=== PATIENT | male | born 2000 | race Hispanic/Latino ===

== ENCOUNTER 2019-09-06 19:12 | Emergency (ER) | payer MEDICAID, OTHER | END 2019-09-06 20:03 | disposition home or self-care (01) | LOC: EDH 19:12 | DX: R50.9 Fever, unspecified (principal); R05 Cough; M79.10 Myalgia, unspecified site | CPT/HCPCS: 99281 ==

== ENCOUNTER 2021-12-22 09:06 | Emergency (ER) | payer OTHER ==
[~2021-12-22] VITALS: Ht 175.3 cm; Wt 98.9 kg
[2021-12-22 09:08] VITALS: BP 139/94
[2021-12-22] MEDS ORDERED: DICYCLOMINE HCL 10 MG/5 ML ML PO ONE (09:30)
[2021-12-22] MEDS ORDERED: LIDOCAINE HCL 2% VISCOUS 15 ML UDCUP PO ONE (09:30)
[2021-12-22] MEDS ORDERED: MAG/ALUM/SIMETH 30 ML UDCUP PO ONE (09:30)
[2021-12-22] MEDS ORDERED: MAG/ALUM/SIMETH 30 ML UDCUP ONE (09:32)
[2021-12-22] MEDS ORDERED: LIDOCAINE HCL 2% VISCOUS 15 ML UDCUP ONE (09:32)
[2021-12-22 09:40] LABS: APPEARANCE,URINE CLEAR (CLEAR); BILIRUBIN,URINE NEGATIVE (NEGATIVE); COLOR,URINE YELLOW (YELLOW); GLUCOSE, URINE (UA) NEGATIVE (NEGATIVE); KETONES,URINE NEGATIVE (NEGATIVE); LEUKOCYTE ESTERASE ,URINE NEGATIVE (NEGATIVE); NITRATE,URINE NEGATIVE (NEGATIVE); OCCULT BLOOD,URINE TRACE-INTACT (NEGATIVE); PH,URINE 6.5 (5.0-8.0); PROTEIN,URINE NEGATIVE (NEGATIVE); UROBILINOGEN,URINE 0.2 mg/dL (0.2-1.0)
[2021-12-22] MEDS ORDERED: FAMO20TA8 PO (09:49)
[2021-12-22 10:20] LABS: BACTERIA,URINE Rare /HPF (None Seen); RBC,URINE 0-1 /HPF (0-1); SQUAMOUS EPITHELIAL CELL,UR 0-2 /HPF (0-2); WBC,URINE 0-1 /HPF (0-1)
== END 2021-12-22 10:00 | disposition home or self-care (01) ==
LOC: EDH 09:06
DX: K21.9 Gastro-esophageal reflux disease without esophagitis (principal)
CPT/HCPCS: 81001

== ENCOUNTER 2022-01-30 01:44 | Emergency (ER) | payer OTHER ==
[~2022-01-30] VITALS: Ht 175.3 cm; Wt 108.9 kg
[~2022-01-30 01:44] MED LIST: FAMO20TA8 PO
[2022-01-30 01:45] VITALS: BP 146/82
== END 2022-01-30 02:26 | disposition home or self-care (01) ==
LOC: EDH 01:44
DX: H61.22 Impacted cerumen, left ear (principal)
CPT/HCPCS: 69210

== ENCOUNTER 2023-10-18 21:48 | Emergency (ER) | payer OTHER ==
[~2023-10-18] VITALS: Ht 177.8 cm; Wt 99.8 kg
[2023-10-19 03:31] VITALS: BP 128/74; PULSE 73; RESP 18; O2SAT 99
[2023-10-19] MEDS ORDERED: ONDA-104 PO (03:33)
== END 2023-10-19 03:53 | disposition home or self-care (01) ==
LOC: EDH 21:48
DX: R11.2 Nausea with vomiting, unspecified (principal); R19.7 Diarrhea, unspecified

== ENCOUNTER 2023-11-02 16:33 | Emergency (ER) | payer OTHER ==
[~2023-11-02] VITALS: Ht 175.3 cm; Wt 100.2 kg
[~2023-11-02 16:33] MED LIST changes: +ONDA-104 PO
[2023-11-02 17:51] LABS: RAPID GROUP A STREP negative (NEGATIVE)
[2023-11-02 17:53] LABS: SARS-CoV-2, RNA, NAAT NEGATIVE SARS CoV-2 (NEGATIVE)
[2023-11-02 18:06] LABS: INFLUENZA TYPE A NEGATIVE FOR TYPE A (NEG); INFLUENZA TYPE B NEGATIVE FOR TYPE B (NEG)
[2023-11-02] MEDS ORDERED: AMOX500T2 PO (18:16)
[2023-11-02] MEDS ORDERED: PRED5TAB PO (18:16)
[2023-11-02 19:01] VITALS: BP 125/69; PULSE 78; RESP 16; O2SAT 97
== END 2023-11-02 19:03 | disposition home or self-care (01) ==
LOC: EDH 16:33
DX: J02.0 Streptococcal pharyngitis (principal); Z20.822 Contact with and (suspected) exposure to COVID-19
CPT/HCPCS: 87635; 87804; 87880

== ENCOUNTER 2025-01-01 09:13 | Emergency (ER) | payer BC ==
[~2025-01-01] VITALS: Ht 177.8 cm; Wt 111.2 kg
[~2025-01-01 09:13] MED LIST changes: +AMOX500T2 PO; +HYDR-4064 PO; +LIDO1ADH71 TP; +MELO-108 PO; +PRED5TAB PO
--- NOTE | 2025-01-01 09:46 | ERN ---
General Chief Complaint: Nausea,Vomiting,Diarrhea Stated Complaint: VOMITING Time Seen by MD: 09:32 Source: patient History of Present Illness Initial Comments Patient is a 24-year-old male coming in complaining of nausea vomiting and diarrhea. Per patient these symptoms started yesterday. He states he has a had multiple episodes in his here for further evaluation. Allergies: Coded Allergies: No Known Drug Allergies (Unverified Allergy, Unknown, 12/22/21) Home Meds Active Scripts Lidocaine (Lidocaine Pain Relief) 4 % Adh..patch, 1 EACH TP BID PRN for PAIN for 10 Days, #10 ADH.PATCH Prov:CLAIR KENDRICK DO 11/13/23 Hydrocodone/Acetaminophen (Hydrocodon-Acetaminoph 7.5-325) 7.5 Mg-325 Mg Tablet, 1 EACH PO TID PRN for PAIN for 10 Days, #20 TAB Prov:CLAIR KENDRICK DO 11/13/23 Meloxicam (Meloxicam) 15 Mg Tablet, 15 MG PO DAILY PRN for PAIN for 10 Days, #10 TAB Prov:CLAIR KENDRICK DO 11/13/23 Prednisone (Prednisone) 5 Mg Tablet, 5 MG PO DAILY for 5 Days, #5 TAB Prov:MESFIN NICHOLS 11/02/23 Amoxicillin (Amoxicillin) 500 Mg Tablet, 500 MG PO BID for 10 Days, #20 TAB Prov:MESFIN NICHOLS 11/02/23 Ondansetron HCl (Ondansetron HCl) 4 Mg Tablet, 4 MG PO TIDP PRN for VOMITING, #10 TAB Prov:VENUS ANGELES MD 10/19/23 Famotidine (Famotidine) 20 Mg Tablet, 20 MG PO BID for 30 Days, #60 TAB Prov:LENA MONREAL MD 12/22/21 Past Medical History Past Medical History: Other Medical History Other: pmhx back pain Past Surgical History: None Family History Family History: Negative Social History Social History: Negative, Lives with family ROS Dictation CONSTITUTIONAL: No chills, no fever, no weakness, no diaphoresis, no malaise. HEAD/FACE: No signs of trauma. EENT: No eye pain, no blurred vision, no tearing, no double vision, no ear pain, no ear discharge, no nose pain, no nasal congestion, no throat pain, no throat swelling, no mouth pain. RESPIRATORY: No cough, no orthopnea, no SOB, no stridor, no wheezing. CARDIOVASCULAR: No chest pain, no edema, no palpitations, no syncope. GASTROINTESTINAL/ABDOMINAL: No abdominal pain, no constipation, diarrhea, nausea, vomiting. GENITOURINARY: No abnormal discharge, no dysuria, no frequent urination, no hematuria. No complaints of pain in the genitals. MUSCULOSKELETAL: No back pain, no gout, no joint pain, no joint swelling, no muscle pain, no muscle stiffness, no neck pain. INTEGUMENTARY: No change in color, no change in hair/nails, no dryness, no lesion, no lumps, no rash. NEUROLOGICAL/PSYCH: No anxiety, not depressed, no emotional problem, no headache, no numbness, no pre-existing deficit, no history of seizures, no tremors, no weakness. HEMATOLOGIC/LYMPHATIC: Not anemic, no history of blood clots, no apparent bleeding, no bruising, glands not swollen. All Systems Negative, Except as Noted. Physical Exam Physical Exam Dictation VITAL SIGNS: Reviewed. GENERAL APPEARANCE: Alert, oriented x3, no acute distress, obese. HEAD AND FACE: Non-traumatic. EYES: PERRL, pink conjunctivas, eyelid no trauma, anterior chamber clear. EARS: Pinnas intact and no signs of trauma or erythema. Ear canals clear and no discharge. TMs no erythema. NOSE: No discharge, no bleeding. OROPHARYNX: Mouth normal, teeth no caries, tongue pink. Pharynx clear, no erythema. Tonsils no exudates, no abscesses noted. Mucous membrane moist. NECK: Supple, non-tender, no thyromegaly, no masses, no JVD, no bruits. BREAST: Deferred. CHEST: No tenderness, no crepitus, no paradoxical movement, no retractions. LUNGS: Clear, well-ventilated, symmetric, no rales, no wheezing, no rhonchi, no stridor, good breath sounds bilaterally. HEART: Regular rate, regular rhythm, no murmur, no gallops. VASCULAR: No peripheral edema. ABDOMEN: Soft, positive bowel sounds, nondistended, no guarding, nontender, no rebound, no masses no hepatomegaly, no splenomegaly, no Torres's sign, no hernias. RECTAL: Deferred. GENITAL: Deferred. NEUROLOGICAL: Normal speech, gross motor function intact, gross sensory function intact. MUSCULOSKELETAL: Neck nontender, full range of motion, back nontender, full range of motion. EXTREMITIES: Nontender, full range of motion. SKIN: Color pink, dry, no turgor, no rash, no lacerations, no abrasions, no contusions. LYMPHATICS: Deferred. Results Laboratory and Microbiology Lab and Micro Result Laboratory Tests Test 01/01/25 09:43 Urine Color LIGHT-YELLOW (YELLOW) Urine Appearance HAZY (CLEAR) Urine pH 6.0 (5.0-8.0) Urine Specific [place] 1.023 (1.001-1.031) Urine Protein 20 mg/dL (NEGATIVE) H Urine Glucose (UA) NEGATIVE mg/dL (NEGATIVE) Urine Ketones NEGATIVE mg/dL (NEGATIVE) Urine Occult Blood SMALL (NEGATIVE) H Urine Nitrate NEGATIVE (NEGATIVE) Urine Bilirubin NEGATIVE mg/dL (NEGATIVE) Urine Urobilinogen 0.2 mg/dL (0.2-1.0) Urine Leukocyte Esterase NEGATIVE Ruthy/uL Urine RBC 6-10 /HPF (0-1) H Urine WBC 2-5 /HPF (0-1) H Urine Squamous Epithelial Cells FEW /HPF (0-2) Urine Amorphous Crystals (Auto) RARE /LPF (None Seen) Urine Bacteria RARE /HPF (None Seen) Urine Opiates Screen NEGATIVE (NEGATIVE) Urine Barbiturates Screen NEGATIVE (NEGATIVE) Urine Phencyclidine Screen NEGATIVE (NEGATIVE) Urine Amphetamines Screen NEGATIVE (NEGATIVE) Urine Benzodiazepines Screen NEGATIVE (NEGATIVE) Urine Cocaine Screen NEGATIVE (NEGATIVE) Urine Marijuana (THC) Screen NEGATIVE (NEGATIVE) Labs Reviewed?: Yes EKG/XRAY/US/CT/MRI EKG Comment 01/01/2025 time 9:57 a.m. Ventricular rate [address] [place] [address] wave elevation or depression MDM MDM: Differential diagnosis: Gastroenteritis, GERD, Rationale: Tests considered and ordered secondary to shared decision making include: Previous outside records reviewed: Old ER visits. Risk of complication and/or morbidity or mortality of patient management: None Medications-Per medication reconciliation Patient is a 24-year-old male coming in complaining of abdominal discomfort nauseousness and vomiting. Throughout ER visit patient has been stable here patient received a GI cocktail felt much better. He refuses lab work and I did advise him that would to completely evaluated without min laboratory workup. He states he does not want any labs performed and feels better with the GI cocktail. We will be discharged in stable condition. ED Course Orders Procedure Category Date Status Time Cbc With Differential LAB 01/01/25 Logged 09:34 Comprehensive LAB 01/01/25 Logged Metabolic Panel 09:34 Urinalysis Profile LAB 01/01/25 Complete 09:34 12 Lead Ekg Tracing- EKG 01/01/25 Logged Technical 09:34 Lactated Ringers PHA 01/01/25 Complete 1000ml (Lactated 10:00 Creatine Kinase, Total LAB 01/01/25 Logged 09:34 Lipase LAB 01/01/25 Logged 09:34 Drug Screen Urine LAB 01/01/25 Complete 09:35 Pantoprazole 40mg Inj PHA 01/01/25 Complete (Protonix 40mg Inj 10:00 Lidocaine Hcl 2% PHA 01/01/25 Complete Viscous (Lidocaine Hcl 10:30 Mag/Alum/Simeth 30ml PHA 01/01/25 Complete (Maalox Plus 30ml) 10:30 Mag/Alum/Simeth 30ml PHA 01/01/25 Complete (Maalox Plus 30ml) 10:32 Lidocaine Hcl 2% PHA 01/01/25 Complete Viscous (Lidocaine Hcl 10:32 Current Medications Medications (Trade) Dose Ordered Sig/Ian Route PRN Reason Start Time Stop Time Status Last Admin Dose Admin Al Hydroxide/Mg Hydroxide (MAALox PLUS 30ML) 30 ml ONCE ONCE PO 01/01/25 10:30 01/01/25 10:35 DC 01/01/25 10:37 Al Hydroxide/Mg Hydroxide (MAALox PLUS 30ML) 30 ml STK-MED ONCE .ROUTE 01/01/25 10:32 01/01/25 10:32 DC Lactated Ringer's 1,000 ml @ 0 mls/hr ONCE ONCE IV 01/01/25 10:00 01/01/25 10:01 DC Lidocaine HCl (Lidocaine HCl 2% Viscous) 10 ml ONCE ONCE PO 01/01/25 10:30 01/01/25 10:35 DC 01/01/25 10:37 Lidocaine HCl (Lidocaine HCl 2% Viscous) 15 ml STK-MED ONCE .ROUTE 01/01/25 10:32 01/01/25 10:32 DC Pantoprazole Sodium (PROTonix 40MG INJ) 40 mg ONCE ONCE IVP 01/01/25 10:00 01/01/25 10:01 DC Vital Signs Date Time Temp Pulse Resp B/P (MAP) Pulse Ox O2 Delivery O2 Flow Rate FiO2 01/01/25 09:37 97.2 63 16 142/89 99 Room Air* 0 21 01/01/25 09:33 97.2 63 16 142/89 99 Room Air 0 DX & DISP Disposition: Discharge Departure Impression: Primary Impression: GERD (gastroesophageal reflux disease) Condition: Stable Additional Instructions: FOLLOW-UP WITH PRIMARY CARE PROVIDER IN 1 TO 2 DAYS. TAKE MEDICATIONS DIRECTED HERE IN THE EMERGENCY ROOM. OKAY TO CONTINUE HOME MEDICATIONS UNLESS OTHERWISE DISCUSSED DURING YOUR VISIT IN THE EMERGENCY ROOM TODAY. RETURN TO YOUR NEAREST EMERGENCY ROOM IF SYMPTOMS WORSEN OR IF THERE IS NO IMPROVEMENT. CALL 911 IF YOU NEED IMMEDIATE ASSISTANCE. TAKE TYLENOL [id number] NEEDED AND IF NO CONTRAINDICATIONS ARE PRESENT. INCREASE ORAL HYDRATION. A WOUND CULTURE OR URINE CULTURE WAS ORDERED HERE IN THE EMERGENCY ROOM DEPARTMENT PLEASE FOLLOW-UP WITH PRIMARY CARE PROVIDER AND ADVISE THEM TO GET REPORTS FROM OUR FACILITY. IF YOU HAD ANY SARAH WRAP/SPLINTS THAT WERE APPLIED HERE, PLEASE DO NOT REMOVE THEM UNTIL YOU SEE YOUR PRIMARY CARE OR SPECIALTY. Referrals: Referrals: SELF,REFERRAL (PCP) CAROLYN QUINONES MD Time of Disposition: 10:50 LENA MONREAL MD Jan 01, 2025 09:45
--- NOTE | 2025-01-01 09:54 | NUR ---
DECLINES VENIPUNCTURES OR VENOUS ACCESS DUE TO FEAR. EDUCATION PROVIDED. CARE PLAN EXPLAINED. PATIENT CONTINUES TO DECLINE. REFUSAL OF TREATMENT SIGNED.
[2025-01-01 09:59] LABS: GLUCOSE, URINE (UA) NEGATIVE (NEGATIVE); LEUKOCYTE ESTERASE ,URINE NEGATIVE Leu/uL (NEGATIVE); NITRATE,URINE NEGATIVE (NEGATIVE); OCCULT BLOOD,URINE SMALL (NEGATIVE)
[2025-01-01 10:01] LABS: ADD UA MICROSCOPIC YES; APPEARANCE,URINE HAZY (CLEAR)
[2025-01-01] MEDS: LACTATED RINGERS 1000ML 1,000 ML IV ONE (10:01)
[2025-01-01 10:06] LABS: AMPHET/METH SCREEN,URINE NEGATIVE (NEGATIVE); BARBITURATE SCREEN, URINE NEGATIVE (NEGATIVE); CANNABINOID SCREEN,URINE NEGATIVE (NEGATIVE); COCAINE SCREEN,URINE NEGATIVE (NEGATIVE)
[2025-01-01 10:07] LABS: SQUAMOUS EPITHELIAL CELL,UR FEW /HPF (0-2)
[2025-01-01] MEDS: MAG/ALUM/SIMETH 30 ML UDCUP PO ONE (10:37)
[2025-01-01] MEDS: LIDOCAINE HCL 2% VISCOUS 15 ML UDCUP PO ONE (10:37)
[2025-01-01] MEDS: MAG/ALUM/SIMETH 30 ML UDCUP ONE (10:37)
[2025-01-01] MEDS: LIDOCAINE HCL 2% VISCOUS 15 ML UDCUP ONE (10:37)
[2025-01-01 10:50] VITALS: BP 139/89; PULSE 63; RESP 16; TEMP 97.2; O2SAT 99
--- NOTE | 2025-01-01 14:58 | EKG ---
[facility] Test Date: 2025-01-01 Test Time: 09:57:20 Pat Name: NICOLE MA Department: [facility] Room: Gender: M [employer]: 07 : 2000 Requested By: LENA MONREAL Order Number: [id number] Reading MD: Shilo Brock Measurements Intervals [place] Rate: 60 P: -6 [place]: 166 QRS: 20 QRSD: 102 T: 26 QT: 437 QTc: 437 Interpretive Statements Sinus rhythm Anterolateral Q wave, probably normal for age No previous ECG available for comparison Electronically Signed On 01-02-2025 10:33:11 CDT by Shilo Brock Please click the below link to view image of tracing.
== END 2025-01-01 10:50 | disposition home or self-care (01) ==
LOC: EDH 09:13
DX: K21.9 Gastro-esophageal reflux disease without esophagitis (principal); Z79.52 Long term (current) use of systemic steroids
CPT/HCPCS: 80305; 81001; 93005; 99284